=== PATIENT | male | born 1945 | race Caucasian/White ===

== ENCOUNTER 2021-01-02 13:13 | Emergency (ER) | payer OTHER ==
[~2021-01-02 13:13] MED LIST: ASPIRIN EC81 MG PO; ASPIRIN325 MG PO; CARDIZEM CD240 MG PO; CARDIZEM60 MG PO; CERTAGEN1 EACH PO; DIGITEK125 MCG PO; ELIQUIS5 MG PO; IMODIUM2 MG PO; LEVAQUIN750 MG PO; METRONIDAZOLE500 MG PO; PREDNISONE 20MG20 MG PO; TOPROL XL 25MG25 MG PO; TOPROL XL 50 MG50 MG PO; VENTOLIN HFA IN18 GM INH
[2021-01-02] MEDS ORDERED: TAMSULOSIN HCL0.4 MG PO (13:31)
[2021-01-02] MEDS ORDERED: ELIQUIS5 MG PO (13:31)
[2021-01-02] MEDS ORDERED: METFORMIN HCL500 M1 PO (13:33)
[2021-01-02] MEDS ORDERED: ATORVASTATIN CA80 MG PO (13:34)
[2021-01-02 14:57] LABS: BASOPHIL 0.5 % (0-2); EOSINOPHIL 2.2 % (0-7); HCT 39.9 % (42.0-52.0); HGB 13.4 g/dl (13.2-18.0); LYMPHOCYTE 21.5 % (15-48); MCHC 33.6 g/dL (32.0-36.0); MCV 95.2 fL (78.0-100.0); MONOCYTE 10.2 % (0-12); MPV 10.2 fL (6.0-9.5); NEUTROPHIL 63.9 % (41-80); NRBC 0; PLT 202 K/uL (150-400); RBC 4.19 M/uL (4.70-6.00); RDW 14.2 % (11.5-14.0); WBC 11.1 K/uL (4.0-10.5)
[2021-01-02 15:22] LABS: BILIRUBIN - TOTAL 0.7 mg/dL (0.2-1.0); CREATININE 1.42 mg/dL (0.67-1.17); GLOBULIN (CALCULATION) 3.2 g/dL; POTASSIUM 4.4 mmol/L (3.5-5.1); TOTAL PROTEIN 6.2 g/dL (6.4-8.2)
[2021-01-02] MEDS ORDERED: LOPERAMIDE2 MG PO (18:21)
[2021-01-02] MEDS ORDERED: FLAGYL500 MG PO (18:22)
== END 2021-01-02 18:44 | disposition home or self-care (01) ==
LOC: FER 13:13
PROVIDERS: Emergency Medicine
DX: E86.0 Dehydration (principal); K57.30 Diverticulosis of large intestine without perforation or abscess without bleeding; R19.7 Diarrhea, unspecified; Z87.891 Personal history of nicotine dependence; Z88.8 Allergy status to other drugs, medicaments and biological substances
CPT/HCPCS: 36415; 80053; 83690; 85025; J7030

== ENCOUNTER → 2021-07-05 | Day surgery (SDC) | payer OTHER | END | disposition home or self-care (01) | LOC: FAS 08:21 | DX: K59.00 Constipation, unspecified (principal); K63.5 Polyp of colon; K57.30 Diverticulosis of large intestine without perforation or abscess without bleeding; I48.91 Unspecified atrial fibrillation; I10 Essential (primary) hypertension; E11.9 Type 2 diabetes mellitus without complications; E78.5 Hyperlipidemia, unspecified; Z86.010 Personal history of colon polyps; Z87.891 Personal history of nicotine dependence; Z79.01 Long term (current) use of anticoagulants; Z79.82 Long term (current) use of aspirin ==